=== PATIENT | female | born 1965 | race Caucasian/White ===

== ENCOUNTER → 2017-07-01 | Outpatient (CLI) | payer OTHER | LOC: FIMAGING 14:50 | PROVIDERS: ATTEND Nurse Practitioner Family | DX: Z12.31 Encounter for screening mammogram for malignant neoplasm of breast (principal) | CPT/HCPCS: G0202 ==

== ENCOUNTER 2017-08-07 01:52 | Emergency (ER) | payer OTHER ==
[2017-08-07 02:01] VITALS: RESP 16
--- NOTE | 2017-08-07 02:37 | EDPHY ---
H & P Stated Complaint: R shoulder pain post chiro HPI/ROS: HPI CHIEF COMPLAINT: Right shoulder pain. HISTORY OF PRESENT ILLNESS: This patient is a very pleasant 52-year-old female otherwise healthy no significant medical history does not take any daily medications presents emergency room with right shoulder pain. It is laterally located. Rather severe 7/10. Worse with range of motion of the right shoulder. Pain is located to the right lateral shoulder. Worse with range of motion. Patient reports this started suddenly while she was getting chiropractic manipulation. She states that she was lying on her back. She had her arms crossed in the center of her chest and then states the chiropractor pushed hard on her arms. She immediately developed right shoulder pain. Pain located lateral right shoulder. Ever since then it has been rather severe. She is unable to sleep. Presents emergency room for evaluation. She denies any chest pain or shortness of breath. Denies significant neck pain. Denies headache. Main complaint right lateral shoulder pain. She describes a dull ache. No pleuritic pain. Past Medical History: Denies medical history Past Surgical History: Denies surgical history Social History: Denies daily use of drugs alcohol tobacco. Lives locally. Family History: Noncontributory. ROS REVIEW OF SYSTEMS: A comprehensive 10 point review of systems is otherwise negative aside from elements mentioned in the history of present illness. Exam Constitutional triage nursing summary reviewed, vital signs reviewed, awake/ alert. Eyes normal conjunctivae and sclera, EOMI, PERRLA. HENT normal inspection, atraumatic, moist mucus membranes, no epistaxis, neck supple/ no meningismus, no raccoon eyes. Respiratory clear to auscultation bilaterally, normal breath sounds, no respiratory distress, no wheezing. Cardiovascular rate normal, regular rhythm, no murmur, no edema, distal pulses normal. Gastrointestinal soft, non-tender, no rebound, no guarding, normal bowel sounds, no distension, no pulsatile mass. Genitourinary no CVA tenderness. Musculoskeletal no midline vertebral tenderness, full range of motion, no calf swelling, no tenderness of extremities, no meningismus, good pulses, neurovascularly intact. Right upper extremity: Good radial pulse. Good cap refill. Limited range of motion over the shoulder. Full range of motion of the hand good extension associate strength. Full range of motion of the elbow. Limited motion to the right shoulder. When she abducts her arm because lateral right shoulder pain. No significant swelling or signs of trauma on exam. Skin pink, warm, & dry, no rash, skin atraumatic. Neurologic awake, alert and oriented x 3, AAOx3, moves all 4 extremities equally, motor intact, sensory intact, CN II-XII intact, normal cerebellar, normal vision, normal speech. Psychiatric normal mood/affect. Heme/Lymph/Immune no lymphadenopathy. Differential Diagnosis: Includes but is not limited to in a particular order acute right shoulder strain, musculoskeletal injury, fracture, dislocation, rotator cuff injury. Medical Decision Making: Plan for this patient x-ray right shoulder, Chilton for pain control and Flexeril for pain control. Re-evaluation: 0331: X-rays reviewed of the right shoulder. I do not appreciate a malalignment dislocation or fracture. She has been placed in a sling for comfort. I referred her to Orthopedics. She declined narcotic pain medicine here in emergency room no and she declined Flexeril. She will have a take-home pack of Chilton and Flexeril. Prescriptions provided as well. She understands follow-up with Orthopedics. Source: Patient - Personal History LMP (Females 10-55): 22-28 Days Ago Current Tetanus/Diphtheria Vaccine: Yes - Medical/Surgical History Hx Asthma: No Hx Chronic Respiratory Disease: No Hx Diabetes: No Hx Cardiac Disease: No Hx Renal Disease: No Hx Cirrhosis: No Hx Alcoholism: No Hx HIV/AIDS: No Hx Splenectomy or Spleen Trauma: No Other PMH: denies - Social History Smoking Status: Never smoked Constitutional: Initial Vital Signs Temperature (C) 36.9 C 08/07/17 01:53 Heart Rate 75 08/07/17 01:53 Respiratory Rate 16 08/07/17 01:53 Blood Pressure 119/83 H 08/07/17 01:53 O2 Sat (%) 97 08/07/17 01:53 O2 Delivery Mode Room Air Allergies/Adverse Reactions: No Known Allergies Allergy (Unverified 08/07/17 01:56) Home Medications: Medication Instructions Recorded Hydrocodone/APAP 5/325 [Chilton 1 - 2 tab PO Q4H PRN #10 tab 08/07/17 5/325] Ibuprofen [Motrin (*)] 800 mg PO Q6-8PRN #10 tab 08/07/17 TOPIRAMATE 08/07/17 Medical Decision Making - Data Points Medications Given: Discontinued Medications Acetaminophen (Tylenol) 1,000 mg PO EDNOW ONE Stop: 08/07/17 03:10 Last Admin: 08/07/17 03:13 Dose: 1,000 mg Ibuprofen (Motrin) 200 mg PO EDNOW ONE Stop: 08/07/17 03:10 Last Admin: 08/07/17 03:12 Dose: 200 mg Departure - Departure Disposition: Home, Routine, Self-Care Clinical Impression: Rotator cuff injury Qualifiers: Encounter type: initial encounter Laterality: right Qualified Code(s): S46.001A - Unspecified injury of muscle(s) and tendon(s) of the rotator cuff of right shoulder, initial encounter Condition: Good Instructions: Rotator Cuff Injury (ED) Additional Instructions: 1. Ice her shoulder. 2. Take ibuprofen for mild pain. 3. Chilton for severe pain. 4. Return emergency room if there is worsening symptoms questions or concerns. 5. Follow up Orthopedics. 6. Sling for comfort. Referrals: Gus Pro MD [Medical Doctor] - As per Instructions Prescriptions: Hydrocodone/APAP 5/325 [Chilton 5/325] 1 - 2 tab PO Q4H PRN #10 tab PRN Reason: Pain, Moderate Ibuprofen [Motrin (*)] 800 mg PO Q6-8PRN #10 tab
[2017-08-07] MEDS ORDERED: CYCLOBENZAPRINE 10MG PREPACK#3 BTL TAKEHOME ONE (02:50)
[2017-08-07] MEDS ORDERED: HYDROCODONE/APAP 5/325 TAB PO ONE (02:50)
[2017-08-07] MEDS ORDERED: HYDROCOD/APAP 5/325 PREPACK#6 BTL TAKEHOME ONE (02:50)
[2017-08-07] MEDS ORDERED: CYCLOBENZAPRINE 10 MG TAB PO ONE (02:50)
[2017-08-07] MEDS ORDERED: ACETAMINOPHEN 500 MG TAB PO ONE (03:09)
[2017-08-07] MEDS ORDERED: IBUPROFEN 200 MG TAB PO ONE (03:09)
[2017-08-07 03:41] VITALS: BP 140/83; PULSE 74; TEMP 98.1; O2SAT 93
== END 2017-08-07 03:38 | disposition home or self-care (01) ==
DX: S46.001A Unspecified injury of muscle(s) and tendon(s) of the rotator cuff of right shoulder, initial encounter (principal); X58.XXXA Exposure to other specified factors, initial encounter

== ENCOUNTER → 2018-07-04 | Outpatient (CLI) | payer OTHER | LOC: FIMAGING 10:21 | PROVIDERS: ATTEND Nurse Practitioner Family | DX: Z12.31 Encounter for screening mammogram for malignant neoplasm of breast (principal) ==